=== PATIENT | male | born 2000 | race Caucasian/White ===

== ENCOUNTER 2020-03-01 00:22 | Emergency (ER) | payer MEDICAID, SELFPAY ==
[2020-03-01 00:35] VITALS: BP 000/00
[2020-03-01 00:55] VITALS: BMI 23.0
--- NOTE | 2020-03-01 00:57 | PC.NURSE ---
EMS reports pt found in [place] unresponsive at 0000. Unknown down time. EMS reported girlfriend on scene stated pt is homeless and heroin is drug of choice . 4mg of Narcan given on scene and 2mg of epi in route by EMS with no effect. Pt cyanotic on arrival. O2 being supplied by EMS via bag-mask. IV to left ac present. 0022-Pt arrived to trauma room 3, asystole on EMS satellite project site monitor. No central pulses palpable, BP unobtainable, Skin is cold to touch. Clothing removed. No personal belongings with pt. 0023- Pupils fixed, dilated at 6mm, non-reactive 0024-IV lost in left ac (accidental d/c), 7 ET tube, 23mm at the teeth. Bilateral breath sounds auscultated w/ symmetrical chest rise witnessed. Capnography positive color change confirming placement. 0026- Monitor showing asystole, BP unable to obtain, no central pulses present. 0028- 15f IO obtained in right [place] by Fanny 0029- 1mg EPI given IO, remains asystole on monitor 0029- Time of pronounced by 0050- WANDER contacted by Luc,RN 0100- Manny Pavon arrived
--- NOTE | 2020-03-01 01:00 | [facility].EDCPR ---
ED Disposition Clinical Impression: Cardiac arrest Disposition: Condition on Discharge: - Critical Care Critical Care Time: No Attestation: On , the high probability of a clinically significant, sudden or life threatening deterioration of the following system(s) required my full and direct attention, intervention and personal management. The time I documented below is in addition to time spent performing reported procedures but includes the following listed in this critical care notation. [facility] Code Documentation - Arrest Information Outside of Hospital The Code Document Section documentation for [id number] Marcus Conroy was populated with data that defaulted in from the supervisor beam department in the Code Assessment on f_Reg Service Date] to provide within this report, the status and treatment of the patient in the ED during a Code. This documentation will be supplemented with my direct findings within the body of the report. Date Treatment Initiated: 03/01/20 Time Treatment Initiated: 00:00 Treatment Initiated By: EMS Location of Arrest: outdoor in [facility] Arrest Witnessed: No Estimated Down Time: unkown - Arrest Information in Hospital Date of Arrest: 03/01/20 Location of Arrest In-house: Emergency Department Other Location of Arrest: Outdoor in [facility] Type of Arrest In-house: Cardiac In-house Arrest Witnessed: No - ALS Code Inititation ALS Initiated By: EMS ALS Type: ACLS ALS Initiated Start Time: 00:00 - Patient Condition At Code Start Condition of Patient at Start of Code: Pulseless, Apneic, Unconscious Monitoring Devices: ECG Monitor - Circulation Initial Cardiac Rhythm: Asystole - Oxygenation Oxygen Breathing Status: Assisted - Procedures ABG's Drawn: No Labs Drawn: No - Assisted Ventilation ETT Insertion Time: 00:24 ETT Size: 7.0 ETT Insertion Site: Oral Endotracheal ETT Position at Lip: 23 - Code End Time Code Ended: 00:29 Patient Successfully Resuscitated: No Reason Code Ended: - Efforts Terminated Family Members Present During Code: No - Mental Status Eye Opening: None Motor Response: None Verbal Response: None Coma scale total: 3 - Patient Expiration Date: 03/01/20 Expiration Time: 00:29 Pronounced by: Dr Ojeda Time Pronounced: 00:29 Post Mortem Care Provided: Yes Next of Kin Notified: none Organ Donor: No Néstor Notified: Yes Name of Néstor Wheat Combine Driver: Kendal Attending Physician Called: Yes (Dr Ojeda) Machine Clothing Replacer Case: Yes (Sandra Pavon called) Machine Clothing Replacer Notified: Yes ([id number]) Machine Clothing Replacer Notification Date: 03/01/20 Machine Clothing Replacer Notification Time: 00:35 Medical Decision Making - Medical Records Medical records reviewed: Yes: I reviewed the patient's medical records. - Pepe Inquiry Pt receiving controlled substance: No Vital Signs: 03/01/20 00:37 Oxygen Flow Rate (LPM) 15 CPR HPI - General Stated Complaint: Overdose Time Seen by Provider: 03/01/20 00:35 - Related Data Allergies Allergy/AdvReac Type Severity Reaction Status Date / Time Unable to Assess Allergy Verified 03/01/20 00:55 [facility] History - Hepatitis A Screen Attestation statement:: This patient has been screened for Hepatitis A risk factors. I have reviewed the patient's past medical history: Yes ROS Obtained: Yes unobtainable due to mental status Physical Exam - General General appearance: other (nonresponsive ) - Head Head exam: normocephalic - Eye Eye exam: Present: other (fixed dil) - ENT ENT exam: Present: mucous membranes dry - Neck Neck exam: Present: trachea midline - Respiratory Respiratory exam: Present: respiratory distress, other (no resp) - Cardiovascular Cardiovascular exam: Present: other (no pulse ) - Abdominal Exam Abdominal exam: Present: soft - Extremities Exam Extremities exam: Absent: pedal edema - Neurological Exam Neurological exam: Present: other (no response to stimuli ) - Skin Skin exam: Present: cyanosis Pr
[2020-03-01 01:39] VITALS: BP 00/00; PULSE 0; RESP 0; TEMP -17.7; TEMP 0; O2SAT 0
--- NOTE | 2020-03-01 01:56 | PC.NURSE ---
Néstor called back with they will follow up with Manny Pavon
== END 2020-03-01 01:42 | disposition expired ==
PROVIDERS: Emergency Provider Emergency Medicine
DX: I46.9 Cardiac arrest, cause unspecified (principal); T40.1X1A Poisoning by heroin, accidental (unintentional), initial encounter; Y92.89 Other specified places as the place of occurrence of the external cause
CPT/HCPCS: 31500; 96365; 96374; 96375; 99291